=== PATIENT | female | born 2000 | race Caucasian/White ===

== ENCOUNTER → 2018-01-26 | Outpatient (CLI) | payer OTHER ==
--- NOTE | 2018-01-26 15:41 | DIAGNOSTIC IMAGING REPORT ---
LEFT THIRD FINGER RADIOGRAPHS CLINICAL HISTORY: Left third finger injury. Evaluate for fracture. COMPARISON: None FINDINGS: Alignment of the left third finger is anatomic. No acute fracture is identified. IMPRESSION: No acute fracture or dislocation of the left third finger. Electronically signed by: Tian Hamm M.D. 01/26/2018 3:40 PM Dictated Date/Time: 01/26/2018 3:38 PM
== END | disposition home or self-care (01) ==
LOC: C.RAD1850 15:21
PROVIDERS: ATTEND Nurse Practitioner
DX: M79.645 Pain in left finger(s) (principal)